=== PATIENT | female | born 1940 | race African-American/Black ===

== ENCOUNTER 2017-01-15 06:20 | Day surgery (SDC) | payer MEDICARE ==
--- NOTE | 2017-01-10 16:35 | Pre-Procedure Note/Attestation ---
Pre-Procedure Note/Attestation Complete Prior to Procedure Planned Procedure: left Procedure Narrative: phaco with IOL Indications for Procedure Pre-Operative Diagnosis: cataract Attestation I attest that I discussed the nature of the procedure; its benefits; risks and complications; and alternatives (and the risks and benefits of such alternatives ), prior to the procedure, with the patient (or the patient's legal printing supplies sales representative). I attest that, if there was a reasonable possibility of needing a blood transfusion, the patient (or the patient's legal printing supplies sales representative) was given the [facility] standardized written summary, pursuant to the [place] Blood Safety Act ([place] Health and Safety Code # 1645, as amended). I attest that I re-evaluated the patient just prior to the surgery and that there has been no change in the patient's H&P, except as documented below: TRENTON OCRNEJO Jan 10, 2017 16:35
--- NOTE | 2017-01-10 16:42 | Opthalmology H&P ---
Ophthalmology H&P H&P Chief Complaint: decreased vision in left eye HPI Vision Affects Ability to: read, focus/use eyes together, manage personal affairs HPI Narrative blurry vision Exam Visual Acuity: OD: 20/100 OS: 20/125 Tension: OD: 15 OS: 18 Eye Exam: normal OU: external exam, palpebral fissure-width, marginal reflex distance, levator function, corneas, anterior chambers, fundus exam, findings: lens - OD: ns OS: ns Assessment/Plan Diagnosis: (1) Cataract Treatment Plan: cataract extraction w/ lens implant Goals of Treatment: improvement of vision, enhance quality of life Attestation Attestation The risks and benefits of the surgery as well as alternative procedures were explained to the patient in detail. TRENTON CORNEJO Jan 10, 2017 16:42
[~2017-01-15] VITALS: Ht 160 cm; Wt 65.8 kg
[2017-01-15] VITALS (7 sets, daily range): BP systolic 117–182; BP diastolic 57–74
[~2017-01-15 06:20] MED LIST: BSS 500ml btl ONE; Dexamethasone 4mg/ml vial ONE; EPINEPHrine 1mg/1ml Amp ONE; Maxitrol Opth Oint 3.5gm ONE; Pred Forte 1% Opth Susp 1ml ONE; Sterile Water 10ml Vial ONE; Tetracaine 0.5% Opth 4ml Soln ONE
[2017-01-15] MEDS ORDERED: Akten 3.5% 1ml Btl LEFT EYE ONE (07:00)
[2017-01-15] MEDS: Cyclopentolate 1% Opth Sol 2ml LEFT EYE SCH ×3 (07:08→07:27)
[2017-01-15] MEDS: Phenylephrine 10% Opth Soln 5ml LEFT EYE SCH ×3 (07:08→07:27)
[2017-01-15] MEDS: Tropicamide 1% Opth 15ml Soln LEFT EYE SCH ×3 (07:09→07:28)
[2017-01-15] MEDS: Tobramycin Op Soln 0.3% 5ml LEFT EYE SCH ×3 (07:09→07:28)
[2017-01-15] MEDS ORDERED: METFORMIN HCL850 M1 ORAL (07:49)
[2017-01-15] MEDS ORDERED: GLIPIZIDE5 MG ORAL (07:50)
[2017-01-15] MEDS ORDERED: ATORVASTATIN CA10 MG ORAL (07:51)
[2017-01-15] MEDS ORDERED: HYDROCHLOROTH12.5 M2 ORAL (07:51)
[2017-01-15] MEDS ORDERED: ENALAPRIL MALEA20 MG ORAL (07:52)
[2017-01-15] MEDS ORDERED: AMLODIPINE BESY10 MG ORAL (07:52)
[2017-01-15] MEDS ORDERED: ASPIRIN EC81 MG ORAL (07:52)
[2017-01-15] MEDS ORDERED: ZOCOR20 M1 ORAL (07:53)
[2017-01-15] MEDS ORDERED: ENALAPRIL MALEA10 MG ORAL (07:54)
[2017-01-15] MEDS ORDERED: NS Irrig 1000ml ONE (08:30)
[2017-01-15] MEDS ORDERED: Midazolam 2mg/2ml Inj ONE (08:30)
[2017-01-15] MEDS ORDERED: Sterile Water Irrig 1000ml IRRIG ONE (08:30)
[2017-01-15] MEDS ORDERED: LR 1000ml ONE (08:30)
[2017-01-15] MEDS ORDERED: Propofol 200mg/20ml IV ONE (08:30)
[2017-01-15] MEDS ORDERED: fentaNYL 100 mcg/2 mL IV ONE (08:30)
[2017-01-15] MEDS ORDERED: LR 1000ml 1,000 ML IVLG SCH (08:45)
[2017-01-15] MEDS ORDERED: DiphenhydrAMINE 50mg/ml Inj IVP PRN (08:45)
[2017-01-15] MEDS ORDERED: fentaNYL 100 mcg/2 mL IV PRN (08:45)
--- NOTE | 2017-01-15 08:45 | Anethesia Preoperative Eval ---
Anesthesia Pre-op PMH/ROS General Date of Evaluation: Jan 15, 2017 Time of Evaluation: 08:20 Anesthesiologist: Royal ASA Score: ASA 2 Mallampati Score Class I : Soft palate, uvula, fauces, pillars visible Class II: Soft palate, uvula, fauces visible Class III: Soft palate, base of uvula visible Class IV: Only hard plate visible Mallampati Classification: Class II Surgeon: Park Diagnosis: L eye cataract Surgical Procedure: L eye catarat exraction Anesthesia History: none Family History: no anesthesia problems Allergies: Coded Allergies: No Known Allergies (Unverified , 01/10/17) Past Medical History Cardiovascular: Reports: HTN, Denies: CAD, [place], valve dz, arrhythmia, other Pulmonary: Denies: asthma, COPD, YOON, other Gastrointestinal/Genitourinary: Reports: GERD Neurologic/Psychiatric: Denies: dementia, CVA, depression/anxiety, TIA, other Endocrine: Reports: DM HEENT: Reports: cataract (L), cataract (R), Denies: glaucoma, MOAPA (L), MOAPA (R), other Hematology/Immune: Denies: anemia, DVT, bleeding disorder, other Musculoskeletal/Integumentary: Reports: DJD, Denies: OA, RA, DDD, edema, other PMH Narrative: as above PSxH Narrative: Vaginal sling Anesthesia Pre-op Phys. Exam Physician Exam Last Vital Signs Date Time Temp Pulse Resp B/P (MAP) Pulse Ox O2 Delivery O2 Flow Rate FiO2 01/15/17 07:17 98.2 52 18 182/74 98 Room Air Constitutional: NAD Neurologic: CN 2-12 intact Cardiovascular: RRR, no M/R/G Respiratory: CTA Gastrointestinal: S/NT/ND Airway Exam Mallampati Score: Class II MO: full Neck: stiff ROM: limited Teeth: missing Dentures: no upper, no lower Anesthesia Pre-op A/P Labs see chart Studies Pre-op Studies: EKG - SR Risk Assessment & Plan Assessment: ASA 2 Plan: MAC Status Change Before Surgery: No Pre-Antibiotics Drug: none AVERY HERNANDEZ M.D. Jan 15, 2017 08:45
--- NOTE | 2017-01-15 09:39 | Immediate Post-Op Evaluation ---
Immediate Post-Op Evalulation Immediate Post-Op Evalulation Procedure: L eye catarat extraction wth IOL Date of Evaluation: Jan 15, 2017 Time of Evaluation: 09:04 IV Fluids: 400 Blood Products: none Estimated Blood Loss: none Urinary Output: none Blood Pressure Systolic: 132 Blood Pressure Diastolic: 58 Pulse Rate: 52 Respiratory Rate: 20 O2 Sat by Pulse Oximetry: 99 Temperature (Fahrenheit): 97.6 Pain Score (1-10): 2 Nausea: No Vomiting: No Complications none Patient Status: awake, patent, none Hydration Status: adequate AVERY HERNANDEZ M.D. Jan 15, 2017 09:39
[2017-01-15] MEDS ORDERED: Povidone-Iodine 5% opth solution ONE (10:22)
[2017-01-15] MEDS ORDERED: Pilocarpine 4% Opth 15ml Soln ONE (10:22)
[2017-01-15] MEDS ORDERED: BSS 15ml BTL ONE (10:22)
[2017-01-15] MEDS ORDERED: Sodium Hyaluronate 14 mg/ml 0.85ml ONE (10:22)
--- NOTE | 2017-01-15 10:22 | 48 Hour Post Anesthesia Eval ---
Post Anesthesia Evaluation Procedure: L eye catarat extraction wth IOL Date of Evaluation: Jan 15, 2017 Time of Evaluation: 10:21 Blood Pressure Systolic: 132 0: 64 Pulse Rate: 72 Respiratory Rate: 20 Temperature (Fahrenheit): 97.6 O2 Sat by Pulse Oximetry: 98 Airway: patent Nausea: No Vomiting: No Pain Intensity: 2 Hydration Status: adequate Cardiopulmonary Status: stable Mental Status/LOC: patient returned to baseline Follow-up Care/Observations: n/a Post-Anesthesia Complications: none Follow-up care needed: ready to discharge AVERY HERNANDEZ M.D. Jan 15, 2017 10:22
--- NOTE | 2017-01-15 13:02 | Brief Operative Note ---
Immediate Post Operative Note Operative Note Chief Complaint: blurry vision Pre-op Diagnosis: cataract, OS Procedure: phaco with IOL, OS Post-op Diagnosis: Pseudophakia Post-op Diagnosis: same as pre-op Findings: consistent w/pre-op dx studies Surgeon: Park Anesthesiologist: Royal Anesthesia: MAC Specimen: yes Complications: yes Condition: stable Fluids: LR Estimated Blood Loss: none Drains: none Implant(s) used?: Yes TRENTON CORNEJO Jan 15, 2017 13:02
--- NOTE | 2017-01-15 13:03 | Operative Note - PDOC ---
Operative Note Operative Note Date of Operation/Procedure: Jan 15, 2017 Chief Complaint: blurry vision Pre-op Diagnosis: cataract, OS Procedure: phaco with IOL, OS Post-op Diagnosis: Pseudophakia Post-op Diagnosis: same as pre-op Operative Findings: consistent w/pre-op dx studies Surgeon: Park Anesthesiologist: Royal Anesthesia: MAC Specimen: yes Complications: yes Condition: stable Fluids: LR Estimated Blood Loss: none Drains: none Implant(s) used?: Yes Indications for Procedure cataract Description of Procedure This patient has been complaining visually significant cataract in the affected eye with the best corrected visual acuity under moderate glare conditions worse. The patient complains of difficulties with glare in performing activities of daily living and wants to manage personal affairs with comfort and accuracy and see well enough to move with safety at home and outdoors. The risks, benefits and alternatives of the procedure were discussed with the patient in the office prior to scheduling surgery. All questions from the patient were answered after the surgical procedure was explained in detail. The risks of the procedure as explained to the patient include, but are not limited to, pain, infection, bleeding, loss of vision, retinal detachment, need for further surgery, loss of lens nucleus, double vision, etc. Alternative procedures were discussed which include, to do nothing or seek a second opinion. Informed consent for this procedure was obtained from the patient. The patient was referred to a primary care physician for a cardiopulmonary clearance prior to surgery, after proper evaluation was done patient was properly scheduled for outpatient surgery. The patient was brought to the operating room where the anesthesiologist established I.V. lines and cardiac monitoring leads. Mild intravenous sedation was administered. Using a solution containing 0.75% Marcaine and 2% lidocaine with Wydase, a peribulbar block was administered to the eye. The patient was then prepared with a 5% solution of povidone-iodine to the conjunctival fornix and lashes, and a 10% solution of povidone-iodine to the lids and periorbital skin. The patient was then draped in the usual sterile fashion. A lid speculum was then placed in the operative eye. A keratome blade was then used to create a biplanar incision into the anterior chamber. Viscoelastics was then instilled into the anterior chamber. A capsulorrhexis was then fashioned with an utrata forceps. BSS and a cannula were then used to hydrodissect and hydro delineate the lens. Paracentesis incision was made at 3 o'clock with sharp blade. The phacoemulsification unit, after being properly adjusted and tested, was then used to emulsify the nucleus then aspiration and irrigation of residual cortical material with the aspiration unit. Healon was then instilled into the anterior chamber. The corneal wound was then enlarged to the size of the optic with the juliann keratome blade. The intraocular lens was then inspected for right power and size and thought to be satisfactory. Then the lens was gently placed in the capsular bag. Positioning within the capsular bag was confirmed by direct visualization. Optic centration was accomplished with a Sinskey hook. Viscoelastics was removed from the anterior chamber using the irrigation and aspiration unit. The corneal wound was then tested for leaks and none were found. The lid speculum were then removed. Sponge and needle counts were correct. An eye patch and shield were placed over the operative eye. The patient was taken to the recovery room in stable condition. There were no complications. The patient tolerated the procedure well. The patient was then transferred to the ambulatory surgery unit in stable and satisfactory condition , was given detailed written instructions and asked to follow up in the office the next day. Dictated & Transcribed: JHP Jose GRIDER JAMES Jan 15, 2017 13:03
== END 2017-01-15 09:55 | disposition home or self-care (01) ==
LOC: SUR 06:20
DX: H26.9 Unspecified cataract (principal); K21.9 Gastro-esophageal reflux disease without esophagitis; M19.90 Unspecified osteoarthritis, unspecified site; I12.9 Hypertensive chronic kidney disease with stage 1 through stage 4 chronic kidney disease, or unspecified chronic kidney disease; E11.22 Type 2 diabetes mellitus with diabetic chronic kidney disease; N18.9 Chronic kidney disease, unspecified; E78.5 Hyperlipidemia, unspecified; E11.40 Type 2 diabetes mellitus with diabetic neuropathy, unspecified
CPT/HCPCS: 66984; 82962; J0171; J1100; J2250; J2704; J3010; J3370; J7120; V2632; 94003; 94150; A4216